=== PATIENT | male | born 1990 | race African-American/Black ===

== ENCOUNTER 2018-04-30 21:15 | Emergency (ER) | payer OTHER, MEDICAID, SELFPAY ==
[2018-04-30 21:16] VITALS: BP 138/91; PULSE 89; RESP 20; TEMP 36.6; O2SAT 99; BMI 23.6
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
[2018-04-30 23:20] VITALS: RESP 16
--- NOTE | 2018-04-30 23:21 | ED.RN ---
REVIEWED D/C INSTRUCTIONS, FOLLOW UP CARE, AND S/S THAT WOULD WARRANT A RETURN TO THE ED WITH PT. PT VERBALIZED AN UNDERSTANDING AND DENIES FURTHER QUESTIONS FOR THIS RN. PT SKIN WARM/DRY, RESP EVEN AND UNLABORED, PT A&O X 3, NO DISTRESS NOTED. PT AMBULATED OUT OF ED, GAIT STEADY.
== END 2018-04-30 23:22 | disposition home or self-care (01) ==
PROVIDERS: Emergency Provider Emergency Medicine; Family Provider Family Medicine; PCP Family Medicine
DX: S16.1XXA Strain of muscle, fascia and tendon at neck level, initial encounter (principal); V89.2XXA Person injured in unspecified motor-vehicle accident, traffic, initial encounter; Y93.9 Activity, unspecified; Y92.9 Unspecified place or not applicable; Z87.891 Personal history of nicotine dependence
CPT/HCPCS: 72040; 99282